=== PATIENT | male | born 1975 | race Caucasian/White ===

== ENCOUNTER 2020-09-09 13:56 | Inpatient (IN) | payer OTHER ==
[2020-09-09] MEDS ORDERED: SODIUM CHLORIDE 0.9% 500 ML INFUS.BAG IV ONE (15:04)
[2020-09-09 15:28] LABS: BASO % 0.6 % (0-2.0); EOS % 1.1 % (0-4.5); LYMPH % 28.5 % (8-40); MCH 28.9 pg (25.7-33.7); MEAN CELL VOLUME 82.5 fl (80-96); MONO % 6.8 % (3.8-10.2); PLATELET COUNT 306 K/MM3 (134-434); RBC 4.85 M/mm3 (4.00-5.60); RDW 13.9 % (11.9-15.9); WHITE BLOOD COUNT 7.3 K/mm3 (4.0-10.0)
[2020-09-09 15:34] LABS: INR 1.15 (0.83-1.09); PROTHROMBIN TIME (PATIENT) 14.1 SEC (9.7-13.0)
[2020-09-09 15:37] LABS: ACTIVATED PTT 32.6 SECONDS (25.2-36.5)
[2020-09-09 15:43] LABS: POTASSIUM 4.1 mmol/L (3.5-5.1)
[2020-09-09 15:46] LABS: ALBUMIN 4.5 g/dl (3.4-5.0); BLOOD UREA NITROGEN 15.6 mg/dL (7-18); CALCIUM 9.9 mg/dL (8.5-10.1)
[2020-09-09 15:50] LABS: CREATININE 0.7 mg/dL (0.55-1.3)
[2020-09-09 15:52] LABS: TOT PROT 8.9 g/dl (6.4-8.2)
[2020-09-09] MEDS ORDERED: ceFAZolin 2 GRAM PREMIX BAG IVPB ONE (18:53)
[2020-09-09] MEDS ORDERED: CEFAZOLIN 2 GM/D5W 2 GM/50 ML ML IVPB ONE (19:24)
[2020-09-09] MEDS ORDERED: ACETAMINOPHEN 325 MG TABLET (FP) PO PRN (22:47)
[2020-09-09] MEDS ORDERED: SODIUM CHLORIDE 1,000 ML IV SCH (23:00)
[2020-09-10] MEDS ORDERED: CEFAZOLIN 1 GM/D5W 1 GM/50 ML BAG IVPB SCH (02:00)
[2020-09-10] MEDS ORDERED: ceFAZolin SODIUM 1 GM VIAL ONE ×2 (02:24→09:48)
[2020-09-10] MEDS ORDERED: DEXTROSE 5%-WATER - 50 ML IVPB ONE (02:24)
[2020-09-10] MEDS: CEFAZOLIN 1 GM in DEXTROSE 5%-WATER - 1 GM/50 ML IVPB IVPB SCH ×2 (02:42→10:04)
[2020-09-10 05:07] VITALS: BMI 35.9
[2020-09-10 08:33] LABS: HEMATOCRIT 37.7 % (35.4-49); HEMOGLOBIN 13.1 GM/dL (11.7-16.9); MCH 28.8 pg (25.7-33.7); MCHC 34.9 g/dl (32.0-35.9); MEAN CELL VOLUME 82.6 fl (80-96); MEAN PLT VOLUME 9.7 fl (7.5-11.1); PLATELET COUNT 287 K/MM3 (134-434); RBC 4.56 M/mm3 (4.00-5.60); RDW 13.4 % (11.9-15.9); WHITE BLOOD COUNT 6.4 K/mm3 (4.0-10.0)
[2020-09-10] MEDS ORDERED: fentaNYL CITRATE 250 MCG/5 ML VIAL ONE (08:46)
[2020-09-10 08:47] LABS: POTASSIUM 4.5 mmol/L (3.5-5.1)
[2020-09-10] MEDS ORDERED: MIDAZOLAM HCL 2 MG/2 ML SINGLE DOSE VIAL ONE (08:47)
[2020-09-10] MEDS ORDERED: SUCCINYLCHOLINE CHLORIDE 200 MG/10 ML SYRINGE ONE (08:47)
[2020-09-10] MEDS ORDERED: ROCURONIUM BROMIDE 50 MG/5 ML SYRINGE ONE (08:47)
[2020-09-10] MEDS ORDERED: PROPOFOL 20 ML ONE (08:47)
[2020-09-10 08:48] LABS: CALCIUM 9.3 mg/dL (8.5-10.1)
[2020-09-10 08:49] LABS: BLOOD UREA NITROGEN 10.6 mg/dL (7-18)
[2020-09-10 08:52] LABS: CREATININE 0.6 mg/dL (0.55-1.3)
[2020-09-10] MEDS ORDERED: morphine SULFATE 4 MG/ML VIAL IVPB PRN (09:17)
[2020-09-10] MEDS ORDERED: ONDANSETRON 4 MG/2 ML VIAL IVPUSH PRN ×2 (09:17→12:05)
[2020-09-10] MEDS ORDERED: oxyCODONE HCL 5 MG TABLET PO PRN (09:17)
[2020-09-10] MEDS ORDERED: IBUPROFEN 800 MG/8 ML IJ IVPB PRN (09:19)
[2020-09-10] MEDS ORDERED: HYDROmorphone HCl 2 MG/ML VIAL ONE (09:24)
[2020-09-10] MEDS ORDERED: DEXAMETHASONE SOD PHOSPHATE 4 MG/1 ML VIAL ONE ×2 (09:46→09:48)
[2020-09-10] MEDS ORDERED: NEOSTIGMINE METHYLSULFATE 0.5 MG/ML - 10 ML MDV ONE (09:47)
[2020-09-10] MEDS ORDERED: KETOROLAC TROMETHAMINE 30 MG/1 ML VIAL ONE (09:48)
[2020-09-10] MEDS ORDERED: GLYCOPYRROLATE 0.2 MG/1 ML VIAL ONE (09:48)
[2020-09-10] MEDS ORDERED: PANTOPRAZOLE SODIUM 40 MG VIAL IVPUSH SCH (10:00)
[2020-09-10] MEDS ORDERED: ENOXAPARIN NA (PORCINE) 40 MG/0.4 ML DISP.SYRIN SQ SCH (10:00)
[2020-09-10] MEDS ORDERED: BUPIVACAINE HCL/PF 0.5% (5 MG/ML) 30 ML VIAL IJ ONE (11:19)
[2020-09-10] MEDS ORDERED: DEXAMETHASONE SOD PHOSPHATE 10 MG/1 ML VIAL IM ONE (11:21)
[2020-09-10] MEDS ORDERED: ACETAMINOPHEN 1000 MG/100 ML VIAL (NON FORMULARY) IVPB ONE (12:05)
[2020-09-10] MEDS ORDERED: SODIUM CHLORIDE 1,000 ML IV SCH (12:39)
[2020-09-10 14:19] VITALS: BP 123/83; PULSE 82; TEMP 97.5
[2020-09-10] MEDS ORDERED: CEFAZOLIN 1 GM in DEXTROSE 5%-WATER - 1 GM/50 ML IVPB IVPB SCH (18:00)
== END 2020-09-10 16:54 | disposition home health service (06) | DRG 355 ==
LOC: JER 13:56 → JERBED 19:13 → J7W 09-10 01:43
PROVIDERS: ADMIT Family Medicine; ATTEND Family Medicine
PROC: 0DBU0ZZ Excision of Omentum, Open Approach (ICD-10-PCS; 2020-09-10)
PROC: 0KNK0ZZ Release Right Abdomen Muscle, Open Approach (ICD-10-PCS; 2020-09-10)
PROC: 0WUF0JZ Supplement Abdominal Wall with Synthetic Substitute, Open Approach (ICD-10-PCS; principal; 2020-09-10 11:00)
DX: K43.6 Other and unspecified ventral hernia with obstruction, without gangrene (principal); I10 Essential (primary) hypertension; K42.9 Umbilical hernia without obstruction or gangrene
CPT/HCPCS: 36415; 71045-TC-FY; 74177-TC; 80048; 80053; 85025; 85027; 85610; 85730; 86850; 86900; 86901; 88304-TC; 93005; 93010; 94010; 94760; 99285-25; C9803; J0131; J1100; U0003